=== PATIENT | female | born 1955 | race Caucasian/White ===

== ENCOUNTER → 2018-05-27 | Outpatient (CLI) | payer OTHER ==
[~2018-05-27] MED LIST: BETIMOL5 ML OPHTHALMIC; IBUPROFEN 400400 M2 PO; NORCO 5-325 TA1 EACH PO; NORVASC5 MG PO; OMEPRAZOLE40 MG PO; RELPAX40 MG PO; VIBERZI75 MG PO; XALATAN2.5 ML OPHTHALMIC; XARELTO10 MG PO
== END ==
LOC: M.MRI 08:13
DX: S83.242A Other tear of medial meniscus, current injury, left knee, initial encounter (principal); M17.12 Unilateral primary osteoarthritis, left knee; M25.462 Effusion, left knee; M25.762 Osteophyte, left knee; M71.22 Synovial cyst of popliteal space [Baker], left knee; X58.XXXA Exposure to other specified factors, initial encounter; Y93.89 Activity, other specified; Y92.89 Other specified places as the place of occurrence of the external cause; Y99.8 Other external cause status

== ENCOUNTER 2018-06-22 06:44 | Inpatient (IN) | payer OTHER ==
[2018-06-09 08:53] LABS: HEMATOCRIT 41.6 % (37.0-47.0); HEMOGLOBIN 13.8 gm/dL (12.0-15.0); MCH 28.4 pg (26.0-34.0); MCHC 33.3 g/dL (28.0-37.0); MCV 85.5 fL (80.0-100.0); MPV 7.2 fl. (7.2-11.1); RBC 4.87 mil/uL (4.20-5.00); RDW-CV 14.6 % (10.5-14.5)
[2018-06-09 09:00] LABS: PROTIME 10.1 Seconds (9.20-11.50)
[2018-06-09 09:05] LABS: URINE BILIRUBIN NEGATIVE (Negative); URINE BLOOD TRACE (Negative); URINE CLARITY CLEAR; URINE COLOR YELLOW; URINE GLUCOSE-RANDOM NEGATIVE (Negative); URINE KETONES NEGATIVE (Negative); URINE LEUKOCYTES-REFLEX NEGATIVE (Negative); URINE NITRITE-REFLEX NEGATIVE (Negative); URINE PROTEIN NEGATIVE (Negative); URINE UROBILINOGEN 0.2 E.U./dl (0.2-1.0)
[2018-06-09 09:30] LABS: ALBUMIN 3.5 g/dL (3.4-5.0); CALCIUM 8.4 mg/dL (8.5-10.1); CREATININE 0.7 mg/dL (0.6-1.3); POTASSIUM 3.7 mmol/L (3.5-5.1); TOTAL BILIRUBIN 0.4 mg/dL (<0.1-1.0); TOTAL PROTEIN 6.8 g/dL (6.4-8.2)
--- NOTE | 2018-06-09 11:18 | EKG ---
[place] [address] ELECTROCARDIOGRAM REPORT Name: CHARLES PRADO Room: PRE IN [facility]#: [id number] Admission: Attend Phys: Maylin Daily Discharge: Date of : 59 Report #: [id number] THIS REPORT FOR: //name// [facility] Test Date: 2018-06-09 Test Time: 08:58:37 Pat Name: CHARLES PRADO Department: Room: Gender: F [employer]: [place] : 1955 Requested By: Daryn Marcelo Order Number: [id number] Reading MD: Tavares Prasad Measurements Intervals [place] Rate: 80 P: 57 HI: 170 QRS: 4 QRSD: 88 T: 49 QT: 382 QTc: 441 Interpretive Statements Sinus rhythm nonspecific st changes Probable left atrial enlargement RSR' in V1 or V2, probably normal variant No previous ECG available for comparison Electronically Signed On 06-09-2018 11:18:22 CDT by Tavares Prasad [email or web address] <ELECTRONICALLY SIGNED> By: Tavares Prasad MD, [facility] 06/09/18 1118 0858 0858 Tavares Prasad MD, FACC /EPI
[~2018-06-22] VITALS: Ht 162.6 cm; Wt 88.5 kg
[~2018-06-22 06:44] MED LIST changes: -NORCO 5-325 TA1 EACH PO; -XARELTO10 MG PO
[2018-06-22 07:32] VITALS: BP 138/85
[2018-06-22 11:30] VITALS: BP 136/56
[2018-06-22 15:29] VITALS: BP 135/68
[2018-06-22 19:45] VITALS: BP 143/68
[2018-06-23] VITALS: BP 131/61
[2018-06-23 04:00] VITALS: BP 149/83
[2018-06-23 04:24] LABS: HEMATOCRIT 36.3 % (37.0-47.0); HEMOGLOBIN 11.9 gm/dL (12.0-15.0)
[2018-06-23 09:55] VITALS: BP 135/69
[2018-06-23] MEDS ORDERED: NORCO 5-325 TA1 EACH PO (14:04)
[2018-06-23 14:08] VITALS: BP 135/69
[2018-06-23 15:23] VITALS: BP 135/69
[2018-06-23] MEDS ORDERED: XARELTO10 MG PO (15:55)
--- NOTE | 2018-06-29 10:35 | OP ---
[facility] [address] [place] [address] OPERATIVE REPORT Name: CHARLES PRADO Karen Room: [address] IN [facility].#: [id number] Admission: 06/22/18 Attend Phys: Maylin Daily Discharge: 06/23/18 Date of : 59 Report #: [id number] THIS REPORT FOR: //name// CC: Hilton Ryan DATE OF SERVICE: 06/22/2018 PREOPERATIVE DIAGNOSIS: Left knee osteoarthritis. POSTOPERATIVE DIAGNOSIS: Left knee osteoarthritis. PROCEDURE: Left total knee arthroplasty. SURGEON: Daryn Marcelo II, DO. DIRECTOR VACCINE: CORAZON Hdez. ANESTHESIA: General endotracheal. ESTIMATED BLOOD LOSS: 50 mL. ANTIBIOTICS: Ancef preoperatively. DRAINS: Medium Hemovac. COMPLICATIONS: None. CONDITION OF PATIENT: Stable to recovery room. IMPLANTS: Listed in the operative record and progress note. BRIEF HISTORY: The patient seen at preoperative area. Preoperative H and P was performed. The patient's site was marked, questions were answered. The risks and benefits were discussed about surgery in detail and the patient wished to proceed and assumed all risks. DESCRIPTION OF PROCEDURE: The patient was taken to the operative suite and placed supine on the operative table and given appropriate anesthesia. The patient had a well-padded tourniquet applied to the upper thigh, which was inflated to 300 mmHg after gravity exsanguination for the duration of procedure. The operative knee was sterilely prepped and draped. Procedure began by a midline incision to the skin and subcutaneous tissues. A medial parapatellar arthrotomy was performed and carried down to bone. Patella was then everted and the excess soft tissue removed around the femur. Femoral cutting block was then [facility] [address] [place] [address] OPERATIVE REPORT Name: CHARLES PRADO Room: [address] IN [facility].#: [id number] Admission: 06/22/18 Attend Phys: Maylin Daily Discharge: 06/23/18 Date of : 59 Report #: [id number] applied, checked with a drop angel for rotational alignment, pinned into appropriate position and appropriate cuts were made. A 4-in-1 cutting block was then applied and checked for rotational alignment, pinned in appropriate position and appropriate cuts were made. The tibia was then exposed. The excess meniscus was removed. Retractors placed on collateral ligaments. The tibial cutting block was applied, pinned in appropriate position, checked with a drop angel for rotation alignment and slope and appropriate cut was made. The tibial bone was removed. Tibial baseplate was then applied and checked for rotation alignment with a drop angel and pinned in appropriate position. The femur was applied and the box cut was reamed. This was then trialed with the appropriate spacer, which showed excellent fit and fill and excellent stability of the knee through range of motion. The patella was then reamed in forward fashion and sized for appropriate size. Three peg holes were drilled. It was then trialed and showed excellent flexion, extension, excellent tracking of patella within the groove. These trials were removed. The tibia was punched in appropriate fashion. Bone ends were cleansed with Pulsavac irrigation and cement was mixed and applied to the final implants. These were then malleted into position and held with the knee in extension and compressed to allow the cement to cure. After it cured, excess was removed using [place] and osteotome. The wound was then copiously irrigated. The final spacer was then malleted in position. The tourniquet was deflated. Hemostasis was obtained with electrocautery. The pain cocktail was injected. PRP gel was sprayed throughout the internal aspects of the knee. A medium Hemovac drain was then applied. The capsule was closed with #2 FiberWire and 1 Vicryl in [id number] fashion. Skin was closed with a 2-0 Vicryl and running 3-0 Monocryl. Dermabond and sterile dressing applied. Andre wrap and PolarCare applied. The patient transported to recovery in stable condition. Counts were correct throughout the procedure. <ELECTRONICALLY SIGNED> By: Daryn Marcelo II, DO 06/29/18 1035 0756 1044Rprasanna Marcelo II, DO /nt
== END 2018-06-23 16:25 | disposition home health service (06) | DRG 470 ==
LOC: M.PRE 06:44 → M.SUR 06:57 → EDSTATUS 07:01 → M.PRE 07:02 → M.TBA 07:11 → M.ORTHSURG 07:11 → M.PRE 07:20 → M.ORTHSURG 10:49 → M.PRE 12:08 → M.ORTHSURG 06-23 16:25
PROVIDERS: Orthopaedic Surgery; ADMIT Internal Medicine
PROC: 0SRD0J9 Replacement of Left Knee Joint with Synthetic Substitute, Cemented, Open Approach (ICD-10-PCS; principal; 2018-06-22)
DX: M17.12 Unilateral primary osteoarthritis, left knee (principal); G43.909 Migraine, unspecified, not intractable, without status migrainosus; I10 Essential (primary) hypertension; H40.9 Unspecified glaucoma; K58.9 Irritable bowel syndrome, unspecified; Z90.49 Acquired absence of other specified parts of digestive tract; Z88.2 Allergy status to sulfonamides; Z80.1 Family history of malignant neoplasm of trachea, bronchus and lung

== ENCOUNTER → 2020-10-30 | Outpatient (CLI) | payer OTHER ==
[~2020-10-30] MED LIST changes: +LIPITOR 20 MG T20 M1 PO; +NORCO 5-325 TA1 EACH PO; +PROTONIX40 M4 PO; +XARELTO10 MG PO
== END ==
LOC: M.LAB 09:23
PROVIDERS: ATTEND Surgery
DX: Z01.812 Encounter for preprocedural laboratory examination (principal); Z20.828 Contact with and (suspected) exposure to other viral communicable diseases

== ENCOUNTER → 2020-11-05 | Day surgery (SDC) | payer OTHER ==
[~2020-11-05] MED LIST changes: +ROXICODONE5 MG PO
[2020-11-05 09:33] LABS: HEMATOCRIT 39.7 % (37.0-47.0); HEMOGLOBIN 12.8 gm/dL (12.0-15.0); MCH 27.1 pg (26.0-34.0); MCHC 32.4 g/dL (28.0-37.0); MCV 83.6 fL (80.0-100.0); MPV 6.7 fl. (7.2-11.1); RBC 4.74 mil/uL (4.20-5.00); RDW-CV 14.8 % (10.5-14.5); WBC 7.1 thou/uL (4.0-11.0)
[2020-11-05 09:36] LABS: CALCIUM 9.1 mg/dL (8.5-10.1); CREATININE 0.8 mg/dL (0.6-1.3); POTASSIUM 3.8 mmol/L (3.5-5.1)
--- NOTE | 2020-11-05 15:14 | EKG ---
[place] [address] ELECTROCARDIOGRAM REPORT Name: CHARLES PRADO Room: [facility]#: [id number] Admission: 11/05/20 Attend Phys: Judith Messina, Discharge: Date of : 59 Date of Service: 11/05/2029 Report #: [id number] THIS REPORT FOR: //name// [facility] Test Date: 2020-11-05 Test Time: 09:29:27 Pat Name: CHARLES PRADO Department: Room: Gender: Head Teacher: : 1955 Requested By: Judith Messina Order Number: [id number] Reading MD: Andre Magallanes Measurements Intervals [place] Rate: 69 P: 50 FL: 178 QRS: 7 QRSD: 100 T: 54 QT: 403 QTc: 432 Interpretive Statements Sinus rhythm RSR' in V1 or V2, right VCD Nonspecific T abnormalities, anterior leads Compared to ECG 06/09/2018 08:58:37 T-wave abnormality now present ST (T wave) deviation persists Electronically Signed On 11-05-2020 15:14:42 [employer]NAL[employer]IS [employer] MANAGER by Andre Magallanes [email or web address] <ELECTRONICALLY SIGNED> By: nAdre Magallanes MD, [facility] 11/05/20 1514 8 8 Andre Magallanes MD, [facility] /EPI
--- NOTE | 2020-11-06 09:10 | OP ---
[address] [address] OPERATIVE REPORT Name: CHARLES PRADO Room: [facility]#: [id number] Admission: 11/05/20 Attend Phys: Judith Messina DO Discharge: Date of : 59 Report #: [id number] THIS REPORT FOR: cc: Hilton Damian Brad DO ~ Judith Messina DO DATE OF SERVICE: 11/05/2020 PREPROCEDURE DIAGNOSIS: Biliary dyskinesia. POSTPROCEDURE DIAGNOSES: Biliary dyskinesia with intra-abdominal adhesions. FINDINGS: Mildly distended gallbladder. There were few dense adhesions at the superior umbilicus. SURGEON: Judith eMssina DO. COSURGEON: Angelo Menard DO, PGY-1 and MS Ramírez3. PROCEDURE PERFORMED: Laparoscopic cholecystectomy. ANESTHESIA: General endotracheal, local and TAP's block. ESTIMATED BLOOD LOSS: 3 mL. DRAINS: None. SPECIMENS: Gallbladder. COMPLICATIONS: None. CONDITION: Stable. DISPOSITION: PACU to home. HISTORY OF PRESENT ILLNESS: The patient is a very pleasant 65-year-old female who presented to my office with a complaint of intermittent bouts of upper abdominal pain. She had undergone an extensive workup with findings of biliary dyskinesia. She was then consented for laparoscopic cholecystectomy. Risks discussed included bleeding, infection, pain, scar formation, injury to bowel, liver, bile duct, hernia at the incision sites, need for an open procedure and risks of general anesthesia. The patient understood these risks and elected to proceed. DESCRIPTION OF PROCEDURE: The patient was brought to the operating room. She [facility] [address] [place] [address] OPERATIVE REPORT Name: CHARLES PRADO Room: [facility]#: [id number] Admission: 11/05/20 Attend Phys: Judith Messina DO Discharge: Date of : 59 Report #: [id number] was laid supine on the operating room table. SCDs were placed on bilateral lower extremities. Ancef was given in the perioperative period. General endotracheal anesthesia was induced by Anesthesia without difficulty. TAP's block was also then provided by Anesthesia without issue. Abdomen was prepped and draped in standard sterile fashion. Timeout was performed to verify patient and procedure. A 10 mL of 0.5% Marcaine were injected in the infraumbilical area. Incision was made with 11 blade. Cautery was used for hemostasis. S retractors were used to visualize fascia. Fascia was grasped and elevated between 2 Kochers. Fascia was incised using cautery. Peritoneum was bluntly entered using a Cee clamp. Finger was introduced into the abdomen to assure that there were no filomena-incisional adhesions. I did palpate an adhesion at the superior umbilicus, but it felt as if we could get the Daryl trocar in without issue. Two stitches of 0 Vicryl were placed. Daryl trocar was introduced and secured with 0 Vicryl stitches. Abdomen was insufflated. The patient was placed head up and tilted left side down. Camera was introduced and a brief anterior abdominal exploration was undertaken. We were able to clearly visualize the supraumbilical adhesion and we able to avoid it. Otherwise, the gallbladder was mildly distended. Three 5 mm trocars were introduced, 1 in the subxiphoid area and 2 in the right upper quadrant, both under direct visualization. Gallbladder was grasped and elevated. Peritoneum overlying the triangle of Calot incised using cautery. Cystic duct and artery were then both easily visualized, both were circumferentially dissected free using a [place] dissector. Any tissues posterior to the artery were removed. This then afforded the critical view. Duct and artery were both doubly clipped and ligated. Gallbladder was then removed from the liver bed utilizing cautery with no further difficulty. Specimen was placed within an EndoCatch bag. Liver bed was inspected. There was 1 small area of bleeding, which was easily controlled with cautery. Clips were inspected. They appeared to be intact. There was no bleeding or leakage noted from the area of the clips. The adhesion in the supraumbilical area was then taken down utilizing cautery with no issues. Our trocars were then removed under direct visualization. There was no bleeding noted from the peritoneum. Abdomen was completely desufflated. Daryl trocar was removed and EndoCatch bag was removed with specimen intact. No stones were palpated. Specimen was handed off for permanent pathology. Kochers were placed on the fascia of our infraumbilical port. Previously placed 0 Vicryl stitches were removed and a 0 Vicryl stitch was placed in a zfojwo-xk-eixmd fashion with excellent approximation of the fascia. An additional 10 mL of 0.5% Marcaine were injected in the fascia. All wounds were closed with 4-0 Monocryl. A total of 30 mL of 0.5% Marcaine were used to anesthetize the wounds. Wounds were then cleansed and covered with Dermabond. The patient was then allowed to awaken [address] [address] OPERATIVE REPORT Name: CHARLES PRADO Room: [facility]#: [id number] Admission: 11/05/20 Attend Phys: Judith Messina DO Discharge: Date of : 59 Report #: [id number] from anesthesia, was extubated and transported to the recovery room with no further difficulties. Counts were correct x 2 at the conclusion of the case. <ELECTRONICALLY SIGNED> By: Judith Messina DO 11/06/20 0910 1128 1152Cronaldo Messina DO /nt
--- NOTE | 2020-11-07 15:07 | PATH ---
[address] [address] PATHOLOGY RPT PROCEDURE Name: AMBER CRUMP Room: [facility]#: [id number] Admission: 11/05/20 Date of : 59 Discharge: Report #: [id number] Path Case #: [id number] [facility] Accession Number: [id number] . 01 Material submitted: . gallbladder - GALLBLADDER AND CONTENTS . 01 Clinical history: . BILIARY DYSKINESIA . 02 Diagnosis: Gallbladder and contents: - Chronic cholecystitis. (DMITRIY:[place]; 11/07/2020) [facility] 11/07/2020 1250 Local . 02 Electronically signed: . Carlton Jennings MD, Pathologist NPI- [id number] . 01 Gross description: . The specimen is received in formalin, labeled "Amber Crump, gallbladder and contents". Received is an intact gallbladder measuring 10.0 x 3.0 x 3.0 cm in greatest dimensions displaying a sweeney-green serosal surface. Opening the specimen reveals a velvety, bile-stained mucosa with a gallbladder wall thickness of 0.1 cm. Calculi are not present, and no masses or lesions are noted grossly. Customer Account Representative sections, to include the proximal margin, are submitted in cassette A1. (CAA; 11/06/2020) [facility] 11/06/2020 1602 Local . 02 Pathologist provided ICD-10: K81.1 . 02 CPT . 178311 Specimen Comment: A courtesy copy of this report has been sent to [phone] Specimen Comment: Report sent to Performed at: [address], [place] [id number] MD Onur Verde MD Phone: [phone] Performed at: 02 [facility] [address], [place], [place] [id number] MD Carlton Jennings MD Phone: [phone]
== END | disposition home or self-care (01) ==
LOC: M.SUR 05:40
PROVIDERS: ATTEND Surgery
DX: K81.1 Chronic cholecystitis (principal); R10.10 Upper abdominal pain, unspecified; K66.0 Peritoneal adhesions (postprocedural) (postinfection); I10 Essential (primary) hypertension; G43.909 Migraine, unspecified, not intractable, without status migrainosus; H40.9 Unspecified glaucoma; Z98.890 Other specified postprocedural states; Z79.899 Other long term (current) drug therapy; Z88.2 Allergy status to sulfonamides; Z88.8 Allergy status to other drugs, medicaments and biological substances; Z90.49 Acquired absence of other specified parts of digestive tract; Z96.652 Presence of left artificial knee joint